=== PATIENT | female | born 1970 | race Caucasian/White ===

== ENCOUNTER 2022-05-09 10:33 | Emergency (ER) | payer SELFPAY ==
[~2022-05-09] VITALS: Ht 154.9 cm; Wt 59.0 kg
[2022-05-09 10:45] VITALS: BP 120/71
--- NOTE | 2022-05-09 11:27 | NUR ---
51Y/O FEMALE PRESENTS TO ED WITH C/O HEADACHE, N/V, DIZZINESS [id number]. PT REPORTS A CONSTANT, THROBBING LIKE, 9/10 PAIN TO HEAD, STATES HEADACHE WORSENS CAUSING NAUSEA AND EPISODES OF VOMITING. PT REPORTS FEELING DIZZY AND UNSTEADY ON HER FEET. PT DENIES TRAUMA/INJURY, VISION CHANGES, VOMITING EPISODES TODAY, DENIES TAKING MEDS FOR PAIN THIS MORNING.
--- NOTE | 2022-05-09 11:52 | NUR ---
GALDINO Aguillon at bedside evaluating Pt.
[2022-05-09] MEDS ORDERED: ONDA-188 PO (12:25)
[2022-05-09] MEDS ORDERED: IMI50 PO (12:25)
[2022-05-09] MEDS ORDERED: ASPI-1198 PO (12:25)
--- NOTE | 2022-05-09 12:32 | NUR ---
Patient discharged with v/s stable. Written and verbal after care instructions about migraine headache given and explained. Patient alert, oriented and verbalized understanding of instructions. Ambulatory with steady gait. All questions addressed prior to discharge. ID band removed. Patient advised to follow up with PMD. Rx of Excedrin, Imitrex and Zofran given. Patient educated on indication of medication including possible reaction and side effects. Opportunity to ask questions provided and answered.
== END 2022-05-09 12:32 | disposition home or self-care (01) ==
LOC: MED 10:33
DX: G43.909 Migraine, unspecified, not intractable, without status migrainosus (principal)
CPT/HCPCS: 99283